=== PATIENT | female | born 1990 | race Caucasian/White ===

== ENCOUNTER 2020-12-16 15:45 | Emergency (ER) | payer MEDICAID ==
[~2020-12-16] VITALS: Ht 162.6 cm; Wt 84.1 kg
[~2020-12-16 15:45] MED LIST: MOTRIN 600600 MG/TAB PO; PERCOCET 325 MG1 TA2 PO; PRENATAL MVI PO; ROXICODONE 55 MG/TAB PO; ULTRAM 50MG TAB50 MG PO; XANAX 0.5MG0.5 MG PO
[2020-12-16 15:53] VITALS: BP 106/80; TEMP 96.9
[2020-12-16 17:13] VITALS: PULSE 69
== END 2020-12-16 17:16 | disposition home or self-care (01) ==
LOC: COL.ER 15:45
DX: S93.402A Sprain of unspecified ligament of left ankle, initial encounter (principal); Z87.891 Personal history of nicotine dependence; W10.8XXA Fall (on) (from) other stairs and steps, initial encounter
CPT/HCPCS: J1885

== ENCOUNTER 2021-06-21 12:20 | Emergency (ER) | payer MEDICAID ==
[~2021-06-21] VITALS: Ht 162.6 cm; Wt 84.1 kg
[2021-06-21 12:28] VITALS: TEMP 98.1
[2021-06-21] MEDS ORDERED: ZITHROMAX Z PA250 MG PO (13:31)
[2021-06-21] MEDS ORDERED: PREDNISONE20 MG PO (13:31)
[2021-06-21] MEDS ORDERED: PROAIR HFA0.09 MG/AC IH (13:32)
[2021-06-21 13:41] VITALS: BP 127/90; PULSE 78
== END 2021-06-21 13:42 | disposition home or self-care (01) ==
LOC: COL.ER 12:20
DX: J45.909 Unspecified asthma, uncomplicated (principal); Z20.822 Contact with and (suspected) exposure to COVID-19

== ENCOUNTER 2021-12-28 18:16 | Emergency (ER) | payer MEDICAID ==
[~2021-12-28] VITALS: Ht 162.6 cm; Wt 85.9 kg
[~2021-12-28 18:16] MED LIST changes: +PREDNISONE20 MG PO; +PROAIR HFA0.09 MG/AC IH; +ZITHROMAX Z PA250 MG PO
[2021-12-28 18:18] VITALS: BP 129/85; TEMP 97.7
[2021-12-28 18:50] LABS: STREP SCREEN NEGATIVE
[2021-12-28] MEDS ORDERED: NYSTATIN OR100 MU/ML PO (19:05)
[2021-12-28 19:12] VITALS: PULSE 86
== END 2021-12-28 19:12 | disposition home or self-care (01) ==
LOC: COL.ER 18:16
PROVIDERS: Nurse Practitioner Primary Care
DX: B37.0 Candidal stomatitis (principal); Z87.891 Personal history of nicotine dependence

== ENCOUNTER 2022-01-23 15:20 | Emergency (ER) | payer MEDICAID ==
[~2022-01-23] VITALS: Ht 162.6 cm; Wt 81.8 kg
[~2022-01-23 15:20] MED LIST changes: +NYSTATIN OR100 MU/ML PO
[2022-01-23 15:57] VITALS: BP 134/89; TEMP 98
[2022-01-23] MEDS ORDERED: NYSTATIN OR100 MU/ML PO (16:44)
[2022-01-23] MEDS ORDERED: AMOXICILLIN 8751 TAB PO (16:45)
[2022-01-23] MEDS ORDERED: FLONASEALLERGY NS (16:45)
[2022-01-23 16:52] VITALS: PULSE 89
== END 2022-01-23 16:52 | disposition home or self-care (01) ==
LOC: COL.ER 15:20
DX: J32.0 Chronic maxillary sinusitis (principal); J32.2 Chronic ethmoidal sinusitis; B37.0 Candidal stomatitis; Z28.310 Unvaccinated for COVID-19

== ENCOUNTER 2022-10-28 11:07 | Emergency (ER) | payer MEDICAID ==
[~2022-10-28] VITALS: Ht 162.6 cm; Wt 89.5 kg
[~2022-10-28 11:07] MED LIST changes: +AMOXICILLIN 8751 TAB PO; +FLONASEALLERGY NS
[2022-10-28 11:18] VITALS: TEMP 97.8
[2022-10-28] MEDS ORDERED: PROVENTIL0.09 MG/A1 IH (11:40)
[2022-10-28] MEDS ORDERED: PROMETHAZINE D473 ML PO (11:40)
[2022-10-28] MEDS ORDERED: AMOXICILLIN 8751 TAB PO (11:40)
[2022-10-28 11:55] VITALS: BP 117/88; PULSE 94
== END 2022-10-28 11:56 | disposition home or self-care (01) ==
LOC: COL.ER 11:07
DX: J01.90 Acute sinusitis, unspecified (principal); J40 Bronchitis, not specified as acute or chronic; Z28.310 Unvaccinated for COVID-19

== ENCOUNTER 2024-02-20 13:35 | Emergency (ER) | payer SELFPAY ==
[~2024-02-20] VITALS: Ht 162.6 cm; Wt 84.1 kg
[~2024-02-20 13:35] MED LIST changes: +PROMETHAZINE D473 ML PO; +PROVENTIL0.09 MG/A1 IH
[2024-02-20 13:37] VITALS: TEMP 97.8
[2024-02-20] MEDS ORDERED: Ibuprofen 600 MG TAB PO ONE (14:45)
[2024-02-20] MEDS ORDERED: oxyCODONE/Acetaminophen 5-325 MG TAB PO ONE (14:45)
[2024-02-20 16:57] VITALS: BP 132/78; PULSE 98
== END 2024-02-20 16:59 | disposition home or self-care (01) ==
LOC: COL.ER 13:35
DX: S93.402A Sprain of unspecified ligament of left ankle, initial encounter (principal); S83.92XA Sprain of unspecified site of left knee, initial encounter; W18.30XA Fall on same level, unspecified, initial encounter; Y93.01 Activity, walking, marching and hiking
CPT/HCPCS: L1830; L1846